=== PATIENT | female | born 1950 | race Two or more races ===

== ENCOUNTER → 2017-09-22 | Outpatient (CLI) | payer MEDICARE, BC ==
[~2017-09-22] VITALS: Ht 152.4 cm; Wt 74.0 kg
[~2017-09-22] MED LIST: ALMO12.5 PO; CHLORHEXIDINE GLUCONATE 2 % 1 PACK (2 CLOTHS) TOPICAL PRN; LACTATED RINGER'S 1000 ML IV PRN; METOPROLOL TARTRATE 25 MG TAB PO PRN; POVIDONE IODINE 5% (ANTISEPSIS KIT) 4 APPLICATIONS EACH NARE PRN; PROT40TA PO; SODIUM CHLORID 0.9% 500 ML IV PRN; TOPI200 PO
[2017-09-22 07:48] VITALS: BP 160/70; PULSE 59; RESP 18; TEMP 98.2; O2SAT 100
== END ==
LOC: HSDC 05:56
DX: K21.9 Gastro-esophageal reflux disease without esophagitis (principal)
CPT/HCPCS: 91010